=== PATIENT | male | born 1975 | race Caucasian/White ===

== ENCOUNTER → 2021-05-05 | Outpatient (CLI) | payer BC ==
--- NOTE | 2021-05-06 11:33 | ECHOF ---
Referral Reason:I71.2 Thoracic aortic aneurysm, without rupture MEASUREMENTS -------- HEIGHT: 177.8 cm WEIGHT: 79.4 kg BP: RVIDd: 4.2 cm (< 3.3) IVSd: 1.1 cm (0.6 - 1.1) LVIDd: 4.2 cm (3.9 - 5.3) LVPWd: 1.1 cm (0.6 - 1.1) IVSs: 1.6 cm LVIDs: 2.4 cm LVPWs: 1.9 cm LAESV Index (A-L): 19.15 ml/m Ao Diam: 2.0 cm (2.0 - 3.7) AV Cusp: 1.7 cm (1.5 - 2.6) MV EXCURSION: 25.336 mm (> 18.000) MV EF SLOPE: 103 mm/s (70 - 150) EPSS: 0.5 cm MV E Charanjit: 0.71 m/s MV DecT: 226 ms MV A Charanjit: 0.50 m/s MV E/A Ratio: 1.43 AV maxP.38 mmHg AV meanP.41 mmHg RAP: 5.00 mmHg RVSP: 26.20 mmHg FINDINGS -------- Sinus rhythm. This was a technically adequate study. The left ventricular size is normal. There is borderline concentric left ventricular hypertrophy. Overall left ventricular systolic function is normal with, an EF between 55 - 60 %. The diastolic filling pattern is normal for the age of the patient 6.44. The right ventricle is moderately enlarged. Normal LA size by volume 22+/-6 ml/m2. The right atrial size is normal. Interatrial and interventricular septum intact. There is no evidence of aortic regurgitation. There is no evidence of aortic stenosis. Functional ly bicuspid aortic valve. Efsq-hj-fgvqdbko mitral regurgitation is present. Mild tricuspid regurgitation present. There is no evidence of pulmonary hypertension. The right v entricular systolic pressure, as measured by Doppler, is 26.20mmHg. There is no pulmonic regurgitation present. The aortic root size is normal. The ascending aorta is dilated measuring up to {4.2 cm}. Normal inferior vena cava with normal inspiratory collapse consistent with estimated right atrial pre ssure of 5 mmHg. There is no pericardial effusion. CONCLUSIONS -------- 1. The left ventricular size is normal. 2. There is borderline concentric left ventricular hypertrophy. 3. Overall left ventricular systolic function is normal with, an EF between 55 - 60 %. 4. The diastolic filling pattern is normal for the age of the patient 6.44 5. The right ventricle is moderately enlarged. 6. Functionally bicuspid aortic valve. 7. Iulv-vt-gbxpqrvb mitral regurgitation is present. 8. Mild tricuspid regurgitation present. 9. The ascending aorta is dilated measuring up to {4.2 cm}. [employer]: Lien Milton RDCS
== END | disposition home or self-care (01) ==
LOC: RADECHMAIN 15:04
PROVIDERS: ATTEND Surgery
DX: I08.1 Rheumatic disorders of both mitral and tricuspid valves (principal); I77.810 Thoracic aortic ectasia
CPT/HCPCS: 93306

== ENCOUNTER → 2022-03-23 | Outpatient (CLI) | payer BC ==
--- NOTE | 2022-03-24 07:11 | CT ---
EXAMINATION TYPE: CT angio chest DATE OF EXAM: 03/23/2022 COMPARISON: Outside CTA chest March 22, 2021 HISTORY: thoracic aortic aneurysm CT DLP: 792.80 mGycm. Automated Exposure Control for Dose Reduction was Utilized. CONTRAST: CTA scan of the thorax is performed without and with IV Contrast, patient injected with 100 mL of Iso kamille 370, aneurysm protocol. 3D reconstructed images are created on an independent workstation and rev iewed. FINDINGS: LUNGS: The lungs are grossly clear, there is no concerning greater than 5 mm parenchymal mass or nodu le identified. There is no pleural effusion or pneumothorax seen. The tracheobronchial tree is pat ent. MEDIASTINUM: Noncontrast images show no suspicious hyperdense material to suggest intramural hematoma . Redemonstration of aneurysm of the ascending aorta measuring up to 4.7 cm in size axial image 28 at the level of the main pulmonary artery is redemonstrated unchanged in size and appearance from outsi de CT. No extension into the articular descending aorta appear normal three-vessel origin from the ar ch noted. There are no greater than 1 cm hilar or mediastinal lymph nodes. No cardiomegaly or peric ardial effusion is seen. OTHER: Partial visualization of prominent right renal pelvis extending into the calyces and mild prox imal hydroureter. Cannot exclude right-sided hydronephrosis. Correlate clinically. Consider imaging f ollow-up such as renal ultrasound based on clinical correlation. IMPRESSION: As above. Stable 4.7 cm ascending aortic aneurysm. Possible right-sided hydronephrosis.
== END | disposition home or self-care (01) ==
LOC: RADCTMAIN 14:13
PROVIDERS: ATTEND Surgery
DX: I71.2 Thoracic aortic aneurysm, without rupture (principal)
CPT/HCPCS: 71275; Q9967

== ENCOUNTER → 2022-08-29 | Outpatient (CLI) | payer BC ==
--- NOTE | 2022-08-29 16:34 | US ---
EXAMINATION TYPE: US kidneys/renal and bladder DATE OF EXAM: 08/29/2022 COMPARISON: CTa CLINICAL HISTORY: N13.30 unspec hydronephrosis. Hydronephrosis on the right on CTa EXAM MEASUREMENTS: Right Kidney: 11.1 x 6.2 x 6.1 cm Left Kidney: 10.4 x 5.0 x 6.0 cm Exam is limited due to great amount of gas. Right Kidney: Hydronephrosis seen. -Not well seen on post-void images. Left Kidney: Renal pelvis appears dilated. Dilation seen on post-void images as well. Bladder: Appears anechoic. Bilateral Jets seen: Yes Mild to moderate right-sided pyelocaliectasis is less well seen after voiding. Prominent left renal p lou without calyceal dilatation similar pre and post void. Bladder adequately distended. Bilateral distal ureteral jets seen. IMPRESSION: Mild to moderate right-sided hydronephrosis prevoid does not persist after voiding.
== END | disposition home or self-care (01) ==
LOC: RADUSWWP 15:58
PROVIDERS: ATTEND Family Medicine
DX: N13.30 Unspecified hydronephrosis (principal)
CPT/HCPCS: 76770

== ENCOUNTER → 2023-03-16 | Outpatient (CLI) | payer OTHER ==
--- NOTE | 2023-03-16 14:25 | CT ---
EXAMINATION TYPE: CT angio chest CT DLP: 679 mGycm, Automated exposure control for dose reduction was used. DATE OF EXAM: 03/16/2023 2:09 PM COMPARISON: 03/23/2022 CLINICAL INDICATION:Male, 48 years old with history of I71.20; Thoracic aortic aneurysm TECHNIQUE/CONTRAST: CTA scan of the thorax is performed without and with IV Contrast, patient injected with 100 ml mL of Isovue 370, pulmonary embolism protocol. MIP images are created and reviewed these are created on a separate workstation.. FINDINGS: Lungs/Pleura: No evidence of focal consolidation, pleural effusion or pneumothorax. Airway: Large airways are patent. Heart: Heart is within normal limits for size. Vasculature: The ascending thoracic aorta is ectatic measuring up to 4.6 cm which is similar given di fferences in technique and cardiac cycle. No evidence for dissection or intramural hematoma on noncon trast imaging. No significant atherosclerosis disease identified. Upper abdominal vasculature appears patent. The descending thoracic aorta is without aneurysm, dissection or intramural hematoma. Mediastinum: No gross evidence of adenopathy. Musculoskeletal: No acute osseous abnormalities Soft Tissues: Unremarkable. Lower neck: No significant findings. Upper Abdomen: No significant findings. IMPRESSION: Stable mild ascending thoracic aorta ectasia up to 46 mm No evidence for dissection or aneurysm.
== END | disposition home or self-care (01) ==
LOC: RADCTMAIN 13:11
PROVIDERS: ATTEND Surgery
DX: I77.810 Thoracic aortic ectasia (principal)
CPT/HCPCS: 71275; Q9967